=== PATIENT | female | born 1975 | race Caucasian/White ===

== ENCOUNTER 2022-01-24 09:04 | Outpatient (CLI) | payer BC, SELFPAY ==
[2022-01-24 14:36] LABS: Chloride* 103 mmol/L (96-114)
[2022-01-24 14:37] LABS: Albumin* 4.2 g/dL (3.3-5.0); Sodium* 138 mmol/L (135-149)
[2022-01-24 14:39] LABS: Carbon Dioxide* 26 mmol/L (20-32); Cholesterol* 226 mg/dL (90-199); Creatinine* 0.9 mg/dL (0.5-1.5); Estimated Glomerular Filt Rate 78 ml/min
[2022-01-24 14:40] LABS: Alanine Aminotransferase* 20 U/L (4-35); Alkaline Phosphatase* 122 U/L (40-150); Aspartate Amino Transferase* 24 U/L (12-35); Bilirubin Total* 0.4 mg/dL (0.1-1.5); Blood Urea Nitrogen* 11 mg/dL (5-24); Calcium* 8.7 mg/dL (8.4-10.6); Glucose* 92 mg/dL (60-115); Total Protein* 7.2 g/dL (6.0-8.3); Triglycerides* 193 mg/dL (40-149)
[2022-01-24 14:41] LABS: HDL Cholesterol* 45 mg/dL (>=50); LDL Cholesterol Calculated 143 mg/dL (<100)
[2022-01-24 14:54] LABS: Potassium* 4.4 mmol/L (3.6-5.1)
[2022-01-24 15:54] LABS: Vitamin B12* 393 pg/mL (243-894)
== END 2022-01-24 09:05 | disposition home or self-care (01) ==
PROVIDERS: PCP Family Medicine; Visit Provider Family Medicine
DX: Z01.419 Encounter for gynecological examination (general) (routine) without abnormal findings (principal); N93.9 Abnormal uterine and vaginal bleeding, unspecified; N89.8 Other specified noninflammatory disorders of vagina; Z13.1 Encounter for screening for diabetes mellitus; Z13.6 Encounter for screening for cardiovascular disorders
CPT/HCPCS: 80053; 80061; 82607; 84443

== ENCOUNTER 2022-02-08 06:57 | Outpatient (CLI) | payer BC, SELFPAY ==
--- NOTE | 2022-02-08 07:15 | CRLHL7_ITS ---
For Patients: As a result of the Century Cures Act, medical imaging exams and procedure reports are released immediately into your electronic medical record. You may view this report before your referring provider. If you have questions, please contact your health care provider. INDICATION: Abnormal uterine bleeding COMPARISON: none TECHNIQUE: 2D garcia scale and color Doppler images were acquired of the pelvis using a transabdominal and transvaginal approach. FINDINGS: Sonographic images demonstrate a normal size and smooth outer contour of the uterus. Uterus measures 11.4 cm in length by 6.8 cm in AP diameter by 7.5 cm in transverse dimension. The myometrium has a heterogeneous echotexture. Small right mid uterine fibroid measuring 9 x 7 x 8 millimeters. Left fundal intramural fibroid also present measuring 2.5 x 2.2 x 1.7 cm. The endometrial lining appears thickened and measures 18 mm in composite thickness. The right ovary measures 2.8 x 1.3 x 1.6 cm in size and the left ovary measures 4.8 x 3.9 x 3.9 cm. The ovaries demonstrate normal arterial and venous blood flow on color Doppler analysis. Simple left ovarian cyst is present measuring 4.2 x 2.7 x 3.7 cm. There are no suspicious fluid collections within the cul-de-sac. IMPRESSION: Thickened endometrium measuring 18 millimeters. Dictated by Justin Murphy MD @ 02/08/2022 9:44:41 AM (Electronically Signed)
== END 2022-02-08 06:58 | disposition home or self-care (01) ==
LOC: US 06:58
PROVIDERS: PCP Family Medicine; Visit Provider Obstetrics & Gynecology
DX: N93.9 Abnormal uterine and vaginal bleeding, unspecified (principal)
CPT/HCPCS: 76830; 76856; 84443

== ENCOUNTER 2022-02-21 13:46 | Outpatient (CLI) | payer BC, SELFPAY ==
[2022-02-21 22:00] LABS: Chloride* 104 mmol/L (96-114); Potassium* 4.7 mmol/L (3.6-5.1); Sodium* 138 mmol/L (135-149)
[2022-02-21 22:03] LABS: Carbon Dioxide* 26 mmol/L (20-32); Estimated Glomerular Filt Rate 69 ml/min
[2022-02-21 22:04] LABS: Blood Urea Nitrogen* 11 mg/dL (5-24); Calcium* 9.5 mg/dL (8.4-10.6); Glucose* 110 mg/dL (60-115)
== END 2022-02-21 13:47 | disposition home or self-care (01) ==
LOC: FRMREF 13:47
PROVIDERS: PCP Family Medicine; Visit Provider Family Medicine
DX: Z01.818 Encounter for other preprocedural examination (principal); N93.9 Abnormal uterine and vaginal bleeding, unspecified
CPT/HCPCS: 80048

== ENCOUNTER 2022-02-28 06:14 | Day surgery (SDC) | payer BC, SELFPAY ==
[2022-02-28 06:50] VITALS: BMI 38.9
[2022-02-28 06:55] LABS: Hemoglobin* 11.5 gm/dL (12.0-16.0)
[2022-02-28 06:57] VITALS: BP 132/75; PULSE 63; RESP 16; TEMP 36.6; O2SAT 98
[2022-02-28 06:59] LABS: Ur HCG Qualitative* Negative (Negative)
[2022-02-28] MEDS: SODIUM CHLORIDE 0.9 % (FLUSH) 10 ML SYRINGE IVF (07:50)
--- NOTE | 2022-02-28 07:59 | P.PCN_ITS ---
Procedure Note Time Seen by Provider: 07:59 Date Seen: 02/28/22 Date of procedure: 02/28/22 Will [facility] bill your pro fee for this procedure?: Yes Procedure: Preoperative diagnosis: 47 year-old with menorrhagia and thickened endometrium on ultrasound Postoperative diagnosis: Same Procedure: Hysteroscopy, Dilation and Curettage using the Truclear incisor Anesthesia: Conscious sedation, paracervical block. Surgeon: Caro Joe MD Materials Supervisor: None Estimated blood loss: [] mL Specimen: Endometrial curettings to pathology. Findings: Exam under anesthesia: Uterus: Anteflexed position, less than 8 week sized, mobile, with no masses or nodularity palpable. Uterus sounded to 10 cm. No adnexal masses or nodularity palpable. On hysteroscopy: Very irregular endometrium, possible hyperplasia versus polyps. Procedure: Kayla was taken to the operating operating room more conscious sedation was found to be adequate. The patient was placed on in the dorsal lithotomy position and an exam under anesthesia was performed with findings stated above. She was then prepped and draped in a normal sterile manner. A bivalve speculum was placed in the vagina. The cervix appears nulliparous. Otherwise no abnormal ities. The paracervical block was placed using 0.5% Marcaine, 5 mL was injected at the 4 and 8 o'clock positions on the cervix. Total of 10 mL used. The posterior lip of the cervix was grasped with a long Allis clamp. The cervix dilated to Hegar 6. The uterus sounded to 10 cm. The Truclear hysteroscope was advanced into the uterus. A diagnostic hysteroscopy was performed with normal saline as the insufflation medium. Findings are stated above. The Truclear incisor was then advanced through the camera. The curettage was performed with the incisor over an approximately 5 minutes. The incisor was then removed. The endometrial cavity appeared normal. Saline deficit at the end of the procedure 315 mL. Total saline used 1800 mL. Nothing was needed for hemostasis. The hysteroscope, Allis clamp and speculum were removed from the vaginal canal. The patient tolerated the procedure well. Sponge, lap and instrument counts were correct x2 at the end of the procedure. The patient was taken to the recovery area in stable condition. Surgeon: Caro Joe MD
[2022-02-28] MEDS: LACTATED RINGERS 1000 ML 1,000 ML 100 ML IV (08:00)
[2022-02-28] MEDS: BUPIVACAINE 0.5% 30 ML 10 ML INJECTION (08:28)
[2022-02-28 08:44] VITALS: BP 116/64; PULSE 68; RESP 16; TEMP 36.2; O2SAT 94
--- NOTE | 2022-02-28 08:51 | W.ANESCHARGE ---
Anesthesia Charges Start Date/Time Anesthesia Start Date: 02/28/22 Anesthesia Start Time: 08:00 Stop Date/Time Anesthesia Stop Date: 02/28/22 Anesthesia Stop Time: 08:48 Summary Emergency: No
[2022-02-28 09:00] VITALS: BP 109/64; PULSE 62; RESP 16; O2SAT 94
[2022-02-28] MEDS: ACETAMINOPHEN 500 MG TABLET 1000 MG PO (09:09)
[2022-02-28 09:15] VITALS: BP 114/67; PULSE 64; RESP 16; O2SAT 96
--- NOTE | 2022-02-28 09:18 | W.ANESCHARGE ---
Anesthesia Charges Start Date/Time Anesthesia Start Date: 02/28/22 Anesthesia Start Time: 08:00 Stop Date/Time Anesthesia Stop Date: 02/28/22 Anesthesia Stop Time: 08:48 Summary Emergency: No
[2022-02-28 09:31] VITALS: BP 100/64; PULSE 52; RESP 16; O2SAT 98
== END 2022-02-28 09:50 | disposition home or self-care (01) ==
PROVIDERS: PCP Family Medicine; Visit Provider Obstetrics & Gynecology
PROC: 0UDB8ZZ Extraction of Endometrium, Via Natural or Artificial Opening Endoscopic (ICD-10-PCS; CPT 58558; principal; 2022-02-28 07:45)
DX: N92.0 Excessive and frequent menstruation with regular cycle (principal); R93.89 Abnormal findings on diagnostic imaging of other specified body structures
CPT/HCPCS: 58558; 00952; 36415; 81025; 85018; 88305; A9270; J1100; J1885; J2250; J2405; J2704; J3010; J3490; J7120

== ENCOUNTER 2022-03-31 07:57 | Outpatient (CLI) | payer BC, SELFPAY ==
--- NOTE | 2022-03-31 08:15 | CRLHL7_ITS ---
For Patients: As a result of the Cures Act, medical imaging exams and procedure reports are released immediately into your electronic medical record. You may view this report before your referring provider. If you have questions, please contact your health care provider. BILATERAL SCREENING MAMMOGRAM WITH COMPUTER-AIDED DETECTION AND TOMOSYNTHESIS TECHNIQUE: CC and MLO views were obtained. These mammographic images have been obtained using full-field digital technique. These mammographic images were interpreted with the benefit of computer-aided detection. Breast Tomosynthesis was used in this interpretation. COMPARISON FILM: 03/14/18. FINDINGS: There are scattered areas of fibroglandular density. IMPRESSION: There is no radiographic evidence for malignancy. ASSESSMENT: BI-RADS Category 1: Negative RECOMMENDATION: Routine screening mammogram in 1 year. A lay language report of this examination will be provided to the patient. Juan Carlos Gorman M.D. Diagnostic/Nuclear Medicine Radiologist [email or web address] [email or web address] a Transcribed: 1:05 p.m. PT/Dictated by: Juan Carlos Gorman MD @ 03/31/2022 10:40:00 AM (Electronically Signed)
== END 2022-03-31 07:58 | disposition home or self-care (01) ==
LOC: MAMMO 07:58
PROVIDERS: PCP Family Medicine; Visit Provider Family Medicine
DX: Z12.31 Encounter for screening mammogram for malignant neoplasm of breast (principal)
CPT/HCPCS: 77063; 77067

== ENCOUNTER 2023-05-09 08:39 | Outpatient (CLI) | payer BC, SELFPAY | END 2023-05-09 08:40 | disposition home or self-care (01) | PROVIDERS: PCP Family Medicine; Visit Provider Family Medicine | DX: Z01.818 Encounter for other preprocedural examination (principal) | CPT/HCPCS: 80048 ==

== ENCOUNTER 2023-05-29 07:00 | Day surgery (SDC) | payer BC, SELFPAY ==
[2023-05-29] VITALS (21 sets, daily range): BP systolic 94–130; BP diastolic 56–77; PULSE 62–80; RESP 16; TEMP 36.2–37.1; O2SAT 93–97; BMI 34.9
[2023-05-29] MEDS: SODIUM CHLORIDE 0.9 % (FLUSH) 10 ML SYRINGE IVF ×2 (07:20→23:38)
[2023-05-29] MEDS: LACTATED RINGERS 1000 ML 1,000 ML 100 ML IV ×2 (07:20→10:25)
[2023-05-29 07:45] LABS: Ur HCG Qualitative* Negative (Negative)
[2023-05-29] MEDS: CEFAZOLIN 1 GM inj 3 GM IVP (08:35)
--- NOTE | 2023-05-29 08:50 | P.NB_ITS ---
Nerve Block Nerve Block Time Seen by Provider: 08:36 Date Seen: 05/29/23 Type of block requested by surgeon for post-operative analgesia: TAP Side: bilateral Time out performed: Yes Verification of patient name: Yes Verification of date of : Yes Site marking: site marked Name of person performing procedure: Phillip Continuous monitoring Was continuous monitoring of O2 sat, B/P, telemetry monitor, recorded every 15 minutes?: Yes Procedure Checklist: sterile prep, needles and gloves Ultrasound guided. Images saved: Yes Medications given in 5ml increments after negative aspiration: Marcaine %: 0.25 mL: 30 Needle gauge: 20 and Exparel mL: 10 Patient tolerated procedure well: Yes Additional comments: Needle noted between internal oblique and transversus abdominus. Local spread visualized Block Charges Block Charge (with Pro Fee): TAP Bilateral Use of Ultrasound Machine for Block: Yes- US Guidance/pain block
--- NOTE | 2023-05-29 08:51 | W.ANESCHARGE ---
Anesthesia Charges Start Date/Time Anesthesia Start Date: 05/29/23 Anesthesia Start Time: 08:28 Stop Date/Time Anesthesia Stop Date: 05/29/23 Anesthesia Stop Time: 11:32
--- NOTE | 2023-05-29 10:27 | W.ANESCHARGE ---
Anesthesia Charges Start Date/Time Anesthesia Start Date: 05/29/23 Anesthesia Start Time: 08:28 Stop Date/Time Anesthesia Stop Date: 05/29/23 Anesthesia Stop Time: 11:32
[2023-05-29] MEDS: BUPIVACAINE 0.5% 30 ML INJECTION (11:00)
[2023-05-29] MEDS: KETOROLAC 30 MG/ML inj IVP ×3 (11:18→23:36)
--- NOTE | 2023-05-29 11:20 | W.PM.H&PU ---
History & Physical Update History & Physical Update H&P Reviewed and patient assessed: No changes noted
--- NOTE | 2023-05-29 11:20 | PM.PROC ---
Procedure Note Time Seen by Provider: 11:21 Date Seen: 05/29/23 Date of procedure: 05/29/23 Will [facility] bill your pro fee for this procedure?: Yes Procedure Description: Preoperative diagnosis: 48-year-old 1 para 1002 (1 adopted child) with dysfunctional uterine bleeding Postoperative diagnosis: Same, uterine fibroids, stage 2 endometriosis Procedure: Total laparoscopic hysterectomy, bilateral salpingo oophorectomy, diagnostic cystoscopy. Anesthesia: General endotracheal, local Surgeon: Caro Joe MD Assist: Mariann Blackburn MD Estimated blood loss: 150 mL. IV Fluid: 1800 mL Urine output: 150 mL clear urine at the end the procedure. Drains: Patel to gravity Specimen: Uterus, bilateral fallopian tubes and ovaries to pathology. Findings: On exam under anesthesia: The uterus was anteverted, approximately 10 week size, mobile without nodularity or masses palpable. Adnexa without mass or fullness palpable. On laparoscopy: there were multiple endometriosis implants in the posterior cul-de-sac and both ovaries were adherent to the posterior uterus due to endometriosis. The uterus had at least 2 intramural fibroids 1 anterior and 1 posterior for both fundal /mid uterus both approximately 3 cm in diameter. The appendix and liver edge appeared normal. There were thin adhesions of the sigmoid colon to the left pelvic sidewall that were lysed sharply to promote visualization. Her gallbladder was surgically absent. after the procedure there were noted to be 2 areas of the skin on the patient's abdominal wall that were excoriated due to insufflation. These were within the patient's abdominal adipose fold and did not require anything for hemostasis. Procedure: Kayla was taken to the operating room where general anesthetic was found to be adequate. She was placed in the dorsal lithotomy position and an exam under anesthesia was performed with findings stated above. She was then prepped and draped in a normal sterile manner. A Patel catheter was placed. A bivalve speculum was placed in the vaginal canal. A long Allis clamp was placed on the anterior lip of the cervix, in the uterus sounded to 8 cm. An extra large VCare uterine manipulator was then placed. The Allis clamp and speculum were removed from the cervix. Attention was then turned to performing the laparoscopic portion of the procedure. All incisions were infiltrated with 0.5% Marcaine prior to incising the skin. A horizontal, 1 cm incision was made 1 cm superior to the umbilicus. An 11 mm trocar was then placed under direct visualization. The abdomen was then insufflated with CO2 gas to a pressure of 15 mm of mercury. Two, pelvic ports were then placed approximately 3-4 finger breaths medial to the ischial crests. The trocar in the RLQ = 5mm, LLQ = 11mm. These were placed under direct visualization. Attention was then turned to performing the hysterectomy. the adhesions of the sigmoid colon to the left pelvic side wall were taken down sharply with the Olymp[employer] PowerSeal dissecting forceps. Both ureters were visualized in the normal position bilaterally. The left fallopian tube was grasped and left infundibulopelvic ligament was cauterized and divided using [employer] blunt tip dissecting forceps. The left side of the hysterectomy was performed using the [employer] dissecting forceps. In sequence show pedicles were formed to divide the utero-ovarian ligament. Then sequential pedicles were made through the broad ligament. The posterior leaf of the broad ligament was then divided and sequential pedicles carried down to the level of the VCare cup. The anterior leaf of the broad ligament was then divided down to the level of the anterior aspect of the VCare cup and a bladder flap created. The uterine vessels were then skeletonized. The uterine vessels were then cauterized and divided. Then excess tissue was cleared over the top of the VCare cup using the dissecting forceps. The right salpingo oophorectomy and right side of the hysterectomy were then performed in a similar manner. The Ligasure Valleylab pen with the spatula attachment was then used to perform the colpotomy incising around the VCare cup. the uterus was morcellated from the vaginal canal in order to remove it from the pelvis. The fundus was then replaced in the vaginal canal to maintain insufflation. The vaginal cuff was then reapproximated using 2-0 V lock suture in a running manner. All the pedicles and vaginal cuff were then closely visualized and hemostasis obtained with bipolar cautery using the PowerSeal dissecting forceps or the [employer] Inter[employer] pen with the spatula. The the uterus was removed from the vaginal canal and sent to pathology. The Patel catheter was briefly removed. A diagnostic cystoscopy was performed using normal saline as the insufflation medium. The dome of the bladder was noted to be without injury and no evidence of any sutures from the vaginal cuff causing injury. Normal urine flow was noted through both ureteral orifices. Fluorescein IV was used to visualize the urine more easily. The Patel catheter was then replaced. Attention was then returned to the abdomen where hemostasis was verified. [Mitra was applied to the vaginal cuff.] The CO2 pressure decreased to 8mmHG and hemostasis verified. The fascia in the LLQ incision was approximated with 0-Vicryl suture using the Jarrett Priest fascial closure device. This was closed under direct visualization with the laparoscope. The fascia in the umbilical incision was reapproximated using 0 Vicryl on a UR 6 needle. All trocars were removed under direct visualization. CO2 gas was allowed to escape the infraumbilical port prior to its removal. All skin incisions were re-approximated using 4-0 Monocryl in a running subcuticular manner, Exofin skin adhesive gel and adhesive bandages placed. The patient tolerated this procedure well. Sponge, lap and instrument counts were correct x2 at the end of the procedure and the patient was taken to the recovery area in stable condition. The patient received 3 gm IV ancef prior to the start of the procedure.
--- NOTE | 2023-05-29 12:27 | W.ANESCHARGE ---
Anesthesia Charges Start Date/Time Anesthesia Start Date: 05/29/23 Anesthesia Start Time: 08:28 Stop Date/Time Anesthesia Stop Date: 05/29/23 Anesthesia Stop Time: 11:32
[2023-05-29] MEDS: LACTATED RINGERS 1000 ML 1,000 ML 125 ML IV (13:02)
[2023-05-29] MEDS: ONDANSETRON 2 MG/ML inj 4 MG IVP (18:59)
[2023-05-30 04:00] VITALS: BP 100/64; PULSE 77; RESP 16; TEMP 37; O2SAT 95
[2023-05-30] MEDS: IBUPROFEN 600 MG TABLET PO (05:44)
[2023-05-30 07:20] VITALS: BP 109/70; PULSE 85; RESP 16; TEMP 36.7; O2SAT 96
[2023-05-30 07:28] VITALS: PULSE 96; RESP 16
--- NOTE | 2023-05-30 08:33 | P.DS_ITS ---
DS: Providers Provider Time Seen by Provider: 08:00 Date Seen: 05/30/23 Primary care physician: Manda Meier DO Attending Physician on discharge: Tg Blackburn MD CABLE FORMER-Discharge Summary Hospital Course Hospital Course Narrative: Patient is a 48 year old admitted on 05/29/2023 for postoperative care. Indication for surgery: Abnormal uterine bleeding. Intraoperative findings were notable for fibroid uterus, endometriosis. Please see Dr. Joe operative note for complete details. She had an uncomplicated surgery. Postoperative course has been uneventful. Vitals have been stable. She has remained afebrile. Today, on postoperative day 1, she reports the pain is well controlled. She has utilized NSAIDs and Tylenol, no narcotics needed. She has been able to ambulate Without difficulty. She is tolerating regular diet without nausea/vomiting. She is passing flatus. Patel catheter has been removed, and she is had a small volume voided already. She intends to trial voiding again in a few hours. Time Spent with Patient Time attestation: Total time spent providing and/or coordinating discharge services: Time spent: Less than 30 minutes CABLE FORMER - Exam Physical Exam: Vital signs: Temp Pulse Resp BP Pulse Ox O2 Del Method 98.1 F 96 16 109/70 96 Room Air 05/30/23 07:20 05/30/23 07:28 05/30/23 07:28 05/30/23 07:20 05/30/23 07:20 05/30/23 07:20 Narrative: General: No acute distress Psych: Alert and oriented x 3, full affect HEENT: Normocephalic, atraumatic Abdomen: Soft, nondistended. Minimal tenderness to palpation of the lower a bdomen, consistent with postop state. Three incisions visualize, intact with superficial surgical glue. No erythema, ecchymosis or drainage. CABLE FORMER - DS: Data Data Completed and Pending Labs on day of discharge: Labs from last 24 hours 05/30/23 05:10 Hgb 12.0 Procedures Procedures: Procedures Operation Date: 05/29/23 08:25 Actual Procedure Side Surgeon p M/S - Total Laparoscopic Hysterectomy, Bilateral Salping-Oophorectomy, Diagnostic Cystoscopy Caro Joe MD Discharge Plan Discharge Disposition: Home, Self-Care Discharging Surgeon: Mariann Blackburn Follow-Up Appointment: With Dr. Joe in 2-3 weeks and in 6 weeks. Prescriptions: New docusate sodium 100 mg Capsule 100 mg PO BID PRN (Reason: Constipation) Qty: 100 0RF ibuprofen 600 mg Tablet 600 mg PO Q6H Qty: 30 0RF oxycodone 5 mg Tablet 5 mg PO 3XD PRNQty: 21 0RF estradiol 0.1 mg/24 hr patch semiweekly 1 patch transdermal 2XW Qty: 24 3RF Rx Instructions: apply 1 patch for 3 days alternating with 1 patch for 4 days each week for 3 wks per 4-wk cycle Continued ferrous sulfate-vitamin C 39-75 mg tablet PO multivitamin Tablet 1 tab PO QAM Algal [place] [facility]-3 DHA 200 mg capsule 200 mg PO DAILY omega 3-ywl-fez-fish oil [Fish Oil] 1,000 mg (120 mg-180 mg) capsule 1 cap PO QDAY Discontinued norethindrone acetate 5 mg tablet 5 mg PO QDAY PRN (Reason: heavy bleeding) Qty: 60 1RF Rx Instructions: Take 1 tablet by mouth daily - TID to control heavy or extended bleeding GaviLyte-C 240-22.72-6.72 -5.84 gram recon soln 240 ml PO Q10M Qty: 4000 0RF Rx Instructions: until fecal effluent is clear Additional Instructions: ACTIVITY RESTRICTIONS: * Nothing vaginally for 6 weeks: no tampons/intercourse * No driving while taking narcotic pain medication during the day. 1-2 weeks. * Lifting restriction: Maximum of 20 pounds for 2-3 weeks. * High impact or core exercises: 3 weeks. * Submerge the incisions in water (bath/pool/peng): 2 weeks. * Off of work/school for a minimum of 3 weeks NO RESTRICTIONS for: * Going up/down stairs * Showering * Walking * Passenger in a car/motorized vehicle Symptoms to report to your doctor * Bleeding that is red, like a moderate period * Passing clots larger than the size of a golf ball * Pain not relieved by prescribed medication * Fever above 100.4 degrees Fahrenheit * A foul vaginal odor * Decrease in urination or painful, frequent urinating * Chest pain * Shortness of breath * Tenderness or pain with redness and/swelling in the calf(s) of your leg Follow-up Appointments: [facility]. [facility] for an incision check. 2. A 6 week postop visit to verify that the vaginal cuff is well-healed. Forms: Work/School Release Follow-up: Caro Joe MD [Staff Physician] - Manda Meier DO [Primary Care Provider] - Discharge Orders: Discharge Order (Routine); Ordered 05/30/23 Ordered By: Mariann Blackburn
[2023-05-30] MEDS: SIMETHICONE 80 MG TAB.CHEW 160 MG PO (08:40)
[2023-05-30] MEDS: ACETAMINOPHEN 500 MG TABLET 1000 MG PO (08:41)
== END 2023-05-30 09:56 | disposition home or self-care (01) ==
LOC: OR 07:01 → OB 07:03
PROVIDERS: PCP Family Medicine; Visit Provider Obstetrics & Gynecology
PROC: 0UT94ZZ Resection of Uterus, Percutaneous Endoscopic Approach (ICD-10-PCS; CPT 58573; principal; 2023-05-29 08:15)
DX: N93.8 Other specified abnormal uterine and vaginal bleeding (principal); D25.1 Intramural leiomyoma of uterus; D25.0 Submucous leiomyoma of uterus; D25.2 Subserosal leiomyoma of uterus; N80.103 Endometriosis of bilateral ovaries, unspecified depth; N80.329 Endometriosis of the posterior cul-de-sac, unspecified depth; G89.18 Other acute postprocedural pain; E66.9 Obesity, unspecified; Z68.34 Body mass index [BMI] 34.0-34.9, adult
CPT/HCPCS: 58573; 00840; 00944; 36415; 51701; 64488; 76942; 81025; 85018; 86850; 86900; 86901; 88307; A9270; C9290; J0330; J0665; J0690; J1100; J1170; J1885; J2250; J2371; J2405; J2704; J3010; J3490; J7120

== ENCOUNTER 2025-02-16 07:27 | Outpatient (CLI) | payer BC, SELFPAY | END 2025-02-16 07:28 | disposition home or self-care (01) | LOC: NFLDREF 02-17 06:11 | PROVIDERS: Visit Provider Registered Nurse | DX: Z13.9 Encounter for screening, unspecified (principal) | CPT/HCPCS: 80061 ==

== ENCOUNTER 2025-05-12 15:49 | Outpatient (CLI) | payer BC, SELFPAY ==
--- NOTE | 2025-05-12 16:00 | CRLHL7_ITS ---
For Patients: As a result of the Century Cures Act, medical imaging exams and procedure reports are released immediately into your electronic medical record. You may view this report before your referring provider. If you have questions, please contact your health care provider. INDICATION: BILATERAL SCREENING MAMMOGRAM, ASYMPTOMATIC 50 Y/O FEMALE COMPARISON: 03/31/2022, 03/14/2018 TECHNIQUE: Digital mammogram in CC and MLO projections including computer-aided detection (CAD) and tomosynthesis. BREAST COMPOSITION: There are scattered areas of fibroglandular density. FINDINGS: No suspicious findings. ASSESSMENT: BI-RADS 1 Negative RECOMMENDATION: Annual screening mammogram. A lay language report of this examination will be provided to the patient. Dictated by: Mary Lou Dominguez MD @ 05/14/2025 07:41:06 (Electronically Signed)
== END 2025-05-12 15:50 | disposition home or self-care (01) ==
LOC: MAMMO 15:49
PROVIDERS: Visit Provider Registered Nurse
DX: Z12.31 Encounter for screening mammogram for malignant neoplasm of breast (principal)
CPT/HCPCS: 77063; 77067